=== PATIENT | female | born 2000 | race American Indian/Alaskan Native ===

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

== ENCOUNTER 2021-04-05 22:32 | Inpatient (IN) | payer MEDICAID, OTHER ==
[2021-04-05] MEDS ORDERED: LACTATED RINGERS 1,000 ML IV ONE ×2 (23:26→23:45)
[2021-04-05 23:42] LABS: Bilirubin,Urine NEG (Negative); Blood,Urine NEG (Negative); Color,Urine Yellow (Yellow); Mucus,Urine 3+ /HPF
[2021-04-05 23:47] LABS: WBC,Urine > 182.0 /HPF (0.0-6.0)
[2021-04-05] MEDS ORDERED: TERBUTALINE 1 MG/1 ML INJ SUB-Q PRN (23:58)
[2021-04-05] MEDS ORDERED: TERBUTALINE 1 MG/1 ML INJ ONE (23:59)
[2021-04-06 00:38] LABS: Basophils % (Auto) 0.3 % (0.0-1.8); Eosinophils % (Auto) 0.3 % (0.0-4.3); Hematocrit 34.1 % (30.3-42.9); Hemoglobin 11.4 gm/dl (10.1-14.3); Lymphocytes # (Auto) 1.7 K/mm3 (1.2-5.4); Lymphocytes % (Auto) 9.3 % (13.4-35.0); Mean Corpuscular HGB Conc 34 % (30-34); Mean Corpuscular Volume 97 fl (79-97); Monocytes # (Auto) 2.1 K/mm3 (0.0-0.8); Monocytes % (Auto) 11.7 % (0.0-7.3); Platelet Count 296 K/mm3 (140-440); Red Blood Count 3.52 M/mm3 (3.65-5.03); Red Cell Distribution Width 13.8 % (13.2-15.2)
[2021-04-06 00:50] LABS: Alanine Aminotransferase 7 units/L (7-56); Albumin 3.4 g/dL (3.9-5); Blood Urea Nitrogen 7 mg/dL (7-17); Calcium 9.6 mg/dL (8.4-10.2); Hemolysis Index 30
[2021-04-06 00:52] LABS: BUN/Creatinine Ratio 12
[2021-04-06] MEDS: AMPICILLIN/NS 2 GM/100 ML 2 GM/100 ML BAG IV SCH ×4 (01:57→20:25)
[2021-04-06] MEDS: LACTATED RINGERS 1,000 ML IV SCH ×2 (02:04→18:48)
[2021-04-06] MEDS: BUTORPHANOL 2 MG/1 ML INJ IV PRN ×2 (02:50→07:36)
[2021-04-06] MEDS: GENTAMICIN 240 MG in SODIUM CHLORIDE 0.9% 100 ML IV SCH (03:00)
--- NOTE | 2021-04-06 05:20 | Ultrasound Report ---
Renal ultrasound INDICATION: Bilateral flank pain. FINDINGS: The right kidney measures 11 cm in length. The right kidney demonstrates moderate hydroneph rosis. The left kidney measures 10 cm in length and demonstrates no hydronephrosis. Urinary bladder i s only partially fluid distended. IMPRESSION: Moderate right hydronephrosis. The technical sales representatives reports some increased relative Doppler fl ow within the right kidney which could be secondary to underlying inflammation such as pyelonephritis . No adjacent fluid collections are identified. Signer Name: Henry Ceron MD Signed: 04/06/2021 5:16 AM Workstation Name: [id number]
--- NOTE | 2021-04-06 05:25 | Ultrasound Report ---
ULTRASOUND OBSTETRIC Indication: wellbeing Findings: There is a single intrauterine . BPD = 7.4 cm = 29 weeks, 4 day(s). Head circumference = 27 cm = 29 weeks, 5 day(s). Abdominal circumference = 24.9 cm = 29 weeks, 1 day(s). Femur length = 5.2 cm = 27 weeks, 6 day(s). Overall estimated sonographic age = 29 weeks, 1 day(s). heart rate is 192 beats per minute. Estimated weight is 1291 grams position is cephalic. Cervix appears closed. movement is present. Placenta is posterior and grade 1 . Amniotic fluid volume appears normal. Impression: 1. Single living intrauterine with estimated sonographic age of 29 weeks, 1 day(s). 2. heart rate measures 192 bpm. 3. Cervical length measures 3.4 cm. ULTRASOUND BIOPHYSICAL PROFILE INDICATION / CLINICAL INFORMATION: wellbeing. COMPARISON: None available. FINDINGS: BREATHING MOVEMENT = 0 GROSS BODY MOVEMENT = 2 TONE = 2 QUALITATIVE AMNIOTIC FLUID VOLUME = 2 TOTAL BIOPHYSICAL SCORE = 8/8 IMPRESSION: 1. biophysical profile = 6 out of 8 Signer Name: Henry Ceron MD Signed: 04/06/2021 5:21 AM Workstation Name: [id number]
[2021-04-06] MEDS ORDERED: LACTATED RINGERS 1,000 ML IV ONE (06:56)
[2021-04-06] MEDS: ACETAMINOPHEN 325 MG TAB PO PRN (07:31)
--- NOTE | 2021-04-06 07:40 | History and Physical Report ---
History of Present Illness Date of examination: 04/06/21 Date of admission: 04/06/21 01:21 Chief complaint: stomach and back pain History of present illness: 20-year-old G1 at 29 weeks 3 days by stated BRYON of history at [facility] presenting with 1 day of back pain, abdominal pain, and pelvic pain. Patient was otherwise healthy with a benign course per patient report. No records were reviewed today. Past History Past Medical History: no pertinent history Past Surgical History: no surgical history Family/Genetic History: other (sister with thyroid disease) Social history: no significant social history - Obstetrical History : 1 Medications and Allergies Allergies Allergy/AdvReac Type Severity Reaction Status Date / Time broccoli AdvReac Unknown Verified 10/07/16 17:51 peanut AdvReac Unknown Verified 10/07/16 17:51 pineapple AdvReac Unknown Verified 10/07/16 17:51 Home Medications Medication Instructions Recorded Confirmed Last Taken Type Cetirizine HCl [ZyrTEC] 10 mg PO QDAY #14 capsule 10/08/16 Unknown Rx Fluticasone [Flonase] 1 spray NS QDAY #1 bottle 10/08/16 Unknown Rx Active Meds: Active Medications Acetaminophen (Acetaminophen 325 Mg Tab) 650 mg PO Q4H PRN PRN Reason: Pain MILD(1-3)/Fever >100.5/STYLES Butorphanol Tartrate (Butorphanol 2 Mg/1 Ml Inj) 2 mg IV Q2H PRN PRN Reason: Labor Pain Last Admin: 04/06/21 02:50 Dose: 2 mg Documented by: Ampicillin Sodium (Ampicillin/Ns 2 Gm/100 Ml) 2 gm in 100 mls @ 100 mls/hr IV Q6H LUNA; Protocol Stop: 04/07/21 20:59 Last Admin: 04/06/21 01:57 Dose: 100 mls/hr Documented by: Gentamicin Sulfate 240 mg/ (Sodium Chloride) 106 mls @ 200 mls/hr IV Q24H LUNA Last Admin: 04/06/21 03:00 Dose: 200 mls/hr Documented by: Lactated Ringer's (Lactated Ringers) 1,000 mls @ 150 mls/hr IV DIRECT LUNA Last Admin: 04/06/21 02:04 Dose: 150 mls/hr Documented by: Lactated Ringer's (Lactated Ringers) 1,000 mls @ 500 mls/hr IV BOLUS ONE Stop: 04/06/21 08:55 Review of Systems All systems: negative (expect HPI) - Vital Signs Vital signs: Vital Signs Pulse Pulse Ox 122 H 98 04/05/21 23:13 04/05/21 23:13 Temp Pulse Resp BP Pulse Ox 100.9 F H 147 H 17 117/65 99 04/06/21 07:27 04/06/21 07:35 04/06/21 07:27 04/06/21 07:27 04/06/21 07:35 - Physical Exam Cardiovascular: Other (tachycardia) Lungs: Positive: Clear to auscultation, Normal air movement Abdomen: Positive: normal appearance, soft, normal bowel sounds, other (R>L CVAT) - Obstetrical FHR: category 1, category 2 Uterine Contraction Monitor Mode: External Uterine Contraction Pattern: Irregular Results Result Diagrams: 04/05/21 23:48 04/05/21 23:48 Abnormal lab results 04/05/21 04/05/21 04/05/21 Range/Units 23:25 23:48 23:48 WBC 17.8 H (4.5-11.0) K/mm3 RBC 3.52 L (3.65-5.03) M/mm3 Lymph % (Auto) 9.3 L (13.4-35.0) % [place]vier % (Auto) 11.7 H (0.0-7.3) % [place] # (Auto) 2.1 H (0.0-0.8) K/mm3 Seg Neutrophils % 78.4 H (40.0-70.0) % Seg Neutrophils # 14.0 H (1.8-7.7) K/mm3 Sodium 135 L (137-145) mmol/L Albumin 3.4 L (3.9-5) g/dL Urine WBC (Auto) > 182.0 H (0.0-6.0) /HPF U Epithel Cells (Auto) 28.0 H (0-13.0) /HPF All other labs normal. Assessment and Plan - Patient Problems (1) Acute pyelonephritis Current Visit: Yes Status: Acute Plan to address problem: Patient symptoms are most consistent with acute right sided pyelonephritis however also with significant maternal and tachycardia. Renal sono without stones, showing right hydronephrosis. UA suggestive of urinary tract infection. White count elevated with a leukocyte predominance. --Consider cardiology and/or infectious disease consult if tachycardia persists. --Continue and antibiotics currently on ampicillin and gentamicin --Aggressive IV fluid hydration --Pain management as indicated --Continue inpatient management
--- NOTE | 2021-04-06 11:49 | Electrocardiograph Report ---
[facility] Test Date: 2021-04-06 Test Time: 01:36:25 Pat Name: WDAE SCOTT Department: Room: 2001 07 Gender: F Shopper'S Aide: TREV : 2000 Requested By: SULEMA SPENCER Order Number: [id number] Reading MD: Josue Houston Measurements Intervals [place] Rate: 134 P: 40 PA: 121 QRS: 47 QRSD: 67 T: 2 QT: 265 QTc: 396 Interpretive Statements Sinus tachycardia No previous ECG available for comparison Electronically Signed On 04-06-2021 11:48:36 EDT by Josue Houston
[2021-04-06] MEDS ORDERED: dexAMETHasone 4 MG/ML VIAL IV ONE (13:00)
[2021-04-06] MEDS: MORPHINE 4 MG/1 ML INJ IV PRN ×2 (13:44→18:36)
--- NOTE | 2021-04-06 18:27 | Progress Note ---
Subjective - Subjective Date of service: 04/06/21 Interval history: PM rounds: pain controlled FHT 140's appropriate and reassuring for gestational age [place]: not rianna Vitals: HR 79(tachycardia resolved) A: pyelo P; pain meds prn abx tylenol CFM Labs in AM Rad Salazar MD Objective - Vital Signs Vital Signs: Vital Signs - 12hr 04/06/21 04/06/21 04/06/21 06:29 06:50 06:55 Temperature Pulse Rate 137 H 145 H 137 H Respiratory Rate Blood Pressure Blood Pressure [Right] O2 Sat by Pulse 99 100 99 Oximetry O2 Sat by Pulse Oximetry [ Bilateral] 04/06/21 04/06/21 04/06/21 07:00 07:05 07:10 Temperature Pulse Rate 138 H 142 H 139 H Respiratory Rate Blood Pressure 118/68 Blood Pressure [Right] O2 Sat by Pulse 99 98 97 Oximetry O2 Sat by Pulse Oximetry [ Bilateral] 04/06/21 04/06/21 04/06/21 07:15 07:20 07:25 Temperature Pulse Rate 146 H 144 H 149 H Respiratory Rate Blood Pressure Blood Pressure [Right] O2 Sat by Pulse 97 97 97 Oximetry O2 Sat by Pulse Oximetry [ Bilateral] 04/06/21 04/06/21 04/06/21 07:26 07:27 07:30 Temperature 100.9 F H Pulse Rate 142 H 140 H 149 H Respiratory 17 Rate Blood Pressure 117/65 Blood Pressure 117/65 [Right] O2 Sat by Pulse 99 99 Oximetry O2 Sat by Pulse Oximetry [ Bilateral] 04/06/21 04/06/21 04/06/21 07:31 07:35 07:40 Temperature Pulse Rate 147 H 136 H Respiratory 17 Rate Blood Pressure Blood Pressure [Right] O2 Sat by Pulse 99 99 Oximetry O2 Sat by Pulse Oximetry [ Bilateral] 04/06/21 04/06/21 04/06/21 07:41 07:45 07:50 Temperature Pulse Rate 142 H 129 H Respiratory Rate Blood Pressure Blood Pressure [Right] O2 Sat by Pulse 97 96 Oximetry O2 Sat by Pulse 99 Oximetry [ Bilateral] 04/06/21 04/06/21 04/06/21 07:55 08:00 08:05 Temperature Pulse Rate 131 H 127 H 125 H Respiratory Rate Blood Pressure 118/70 Blood Pressure [Right] O2 Sat by Pulse 97 98 97 Oximetry O2 Sat by Pulse Oximetry [ Bilateral] 04/06/21 04/06/21 04/06/21 08:10 08:15 08:20 Temperature Pulse Rate 124 H 120 H 122 H Respiratory Rate Blood Pressure Blood Pressure [Right] O2 Sat by Pulse 97 97 97 Oximetry O2 Sat by Pulse Oximetry [ Bilateral] 04/06/21 04/06/21 04/06/21 08:25 08:30 08:35 Temperature Pulse Rate 129 H 129 H 129 H Respiratory Rate Blood Pressure Blood Pressure [Right] O2 Sat by Pulse 97 97 97 Oximetry O2 Sat by Pulse Oximetry [ Bilateral] 04/06/21 04/06/21 04/06/21 08:40 08:45 08:50 Temperature Pulse Rate 128 H 124 H 125 H Respiratory Rate Blood Pressure Blood Pressure [Right] O2 Sat by Pulse 99 99 98 Oximetry O2 Sat by Pulse Oximetry [ Bilateral] 04/06/21 04/06/21 04/06/21 08:55 09:00 09:05 Temperature Pulse Rate 124 H 128 H 129 H Respiratory Rate Blood Pressure 107/59 Blood Pressure [Right] O2 Sat by Pulse 98 97 98 Oximetry O2 Sat by Pulse Oximetry [ Bilateral] 04/06/21 04/06/21 04/06/21 09:10 09:15 09:20 Temperature Pulse Rate 126 H 129 H 137 H Respiratory Rate Blood Pressure Blood Pressure [Right] O2 Sat by Pulse 98 99 98 Oximetry O2 Sat by Pulse Oximetry [ Bilateral] 04/06/21 04/06/21 04/06/21 09:25 09:30 09:35 Temperature Pulse Rate 131 H 129 H 125 H Respiratory Rate Blood Pressure Blood Pressure [Right] O2 Sat by Pulse 98 97 97 Oximetry O2 Sat by Pulse Oximetry [ Bilateral] 04/06/21 04/06/21 04/06/21 09:40 09:45 09:50 Temperature Pulse Rate 139 H 142 H 130 H Respiratory Rate Blood Pressure Blood Pressure [Right] O2 Sat by Pulse 97 99 98 Oximetry O2 Sat by Pulse Oximetry [ Bilateral] 04/06/21 04/06/21 04/06/21 09:55 10:00 10:01 Temperature Pulse Rate 129 H 139 H 137 H Respiratory Rate Blood Pressure 110/59 Blood Pressure [Right] O2 Sat by Pulse 98 98 Oximetry O2 Sat by Pulse Oximetry [ Bilateral] 04/06/21 04/06/21 04/06/21 10:05 10:10 10:15 Temperature Pulse Rate 141 H 138 H 136 H Respiratory Rate Blood Pressure Blood Pressure [Right] O2 Sat by Pulse 99 98 97 Oximetry O2 Sat by Pulse Oximetry [ Bilateral] 04/06/21 04/06/21 04/06/21 10:20 10:25 10:30 Temperature Pulse Rate 141 H 137 H 131 H Respiratory Rate Blood Pressure Blood Pressure [Right] O2 Sat by Pulse 98 98 98 Oximetry O2 Sat by Pulse Oximetry [ Bilateral] 04/06/21 04/06/21 04/06/21 10:35 10:40 10:45 Temperature Pulse Rate 124 H 131 H 130 H Respiratory Rate Blood Pressure Blood Pressure [Right] O2 Sat by Pulse 98 99 99 Oximetry O2 Sat by Pulse Oximetry [ Bilateral] 04/06/21 04/06/21 04/06/21 10:50 10:55 11:00 Temperature Pulse Rate 131 H 128 H 131 H Respiratory Rate Blood Pressure Blood Pressure [Right] O2 Sat by Pulse 99 98 99 Oximetry O2 Sat by Pulse Oximetry [ Bilateral] 04/06/21 04/06/21 04/06/21 11:01 11:05 11:10 Temperature Pulse Rate 127 H 123 H 129 H Respiratory Rate Blood Pressure 112/56 Blood Pressure [Right] O2 Sat by Pulse 98 99 Oximetry O2 Sat by Pulse Oximetry [ Bilateral] 04/06/21 04/06/21 04/06/21 11:20 11:25 11:30 Temperature Pulse Rate 122 H 134 H 116 H Respiratory Rate Blood Pressure Blood Pressure [Right] O2 Sat by Pulse 99 98 99 Oximetry O2 Sat by Pulse Oximetry [ Bilateral] 04/06/21 04/06/21 04/06/21 11:35 11:40 11:45 Temperature Pulse Rate 125 H 116 H 112 H Respiratory Rate Blood Pressure Blood Pressure [Right] O2 Sat by Pulse 98 98 99 Oximetry O2 Sat by Pulse Oximetry [ Bilateral] 04/06/21 04/06/21 04/06/21 11:50 11:55 12:00 Temperature Pulse Rate 109 H 120 H 124 H Respiratory Rate Blood Pressure 119/69 Blood Pressure [Right] O2 Sat by Pulse 99 100 100 Oximetry O2 Sat by Pulse Oximetry [ Bilateral] 04/06/21 04/06/21 04/06/21 12:05 12:10 12:15 Temperature Pulse Rate 121 H 124 H 116 H Respiratory Rate Blood Pressure Blood Pressure [Right] O2 Sat by Pulse 99 99 99 Oximetry O2 Sat by Pulse Oximetry [ Bilateral] 04/06/21 04/06/21 04/06/21 12:20 12:25 12:30 Temperature Pulse Rate 124 H 111 H 116 H Respiratory Rate Blood Pressure Blood Pressure [Right] O2 Sat by Pulse 99 98 99 Oximetry O2 Sat by Pulse Oximetry [ Bilateral] 04/06/21 04/06/21 04/06/21 12:35 12:40 12:45 Temperature Pulse Rate 114 H 117 H 111 H Respiratory Rate Blood Pressure Blood Pressure [Right] O2 Sat by Pulse 99 100 99 Oximetry O2 Sat by Pulse Oximetry [ Bilateral] 04/06/21 04/06/21 04/06/21 12:50 13:00 13:05 Temperature Pulse Rate 116 H 118 H 114 H Respiratory Rate Blood Pressure Blood Pressure [Right] O2 Sat by Pulse 99 99 99 Oximetry O2 Sat by Pulse Oximetry [ Bilateral] 04/06/21 04/06/21 04/06/21 13:10 13:15 13:20 Temperature Pulse Rate 110 H 109 H 110 H Respiratory Rate Blood Pressure Blood Pressure [Right] O2 Sat by Pulse 100 100 99 Oximetry O2 Sat by Pulse Oximetry [ Bilateral] 04/06/21 04/06/21 04/06/21 13:25 13:30 13:35 Temperature Pulse Rate 109 H 110 H 107 H Respiratory Rate Blood Pressure Blood Pressure [Right] O2 Sat by Pulse 99 100 100 Oximetry O2 Sat by Pulse Oximetry [ Bilateral] 04/06/21 04/06/21 04/06/21 13:40 13:45 13:50 Temperature Pulse Rate 105 H 106 H 117 H Respiratory Rate Blood Pressure Blood Pressure [Right] O2 Sat by Pulse 100 100 99 Oximetry O2 Sat by Pulse Oximetry [ Bilateral] 04/06/21 04/06/21 04/06/21 13:55 14:00 14:05 Temperature Pulse Rate 109 H 112 H 111 H Respiratory Rate Blood Pressure 120/76 Blood Pressure [Right] O2 Sat by Pulse 99 99 99 Oximetry O2 Sat by Pulse Oximetry [ Bilateral] 04/06/21 04/06/21 04/06/21 14:10 14:15 14:20 Temperature Pulse Rate 108 H 109 H 107 H Respiratory Rate Blood Pressure Blood Pressure [Right] O2 Sat by Pulse 100 98 98 Oximetry O2 Sat by Pulse Oximetry [ Bilateral] 04/06/21 04/06/21 04/06/21 14:25 14:30 14:35 Temperature Pulse Rate 106 H 109 H 108 H Respiratory Rate Blood Pressure Blood Pressure [Right] O2 Sat by Pulse 98 98 98 Oximetry O2 Sat by Pulse Oximetry [ Bilateral] 04/06/21 04/06/21 04/06/21 14:40 14:45 14:50 Temperature Pulse Rate 107 H 110 H 107 H Respiratory Rate Blood Pressure Blood Pressure [Right] O2 Sat by Pulse 99 98 98 Oximetry O2 Sat by Pulse Oximetry [ Bilateral] 04/06/21 04/06/21 04/06/21 14:55 15:06 15:11 Temperature Pulse Rate 119 H 107 H 108 H Respiratory Rate Blood Pressure Blood Pressure [Right] O2 Sat by Pulse 98 99 99 Oximetry O2 Sat by Pulse Oximetry [ Bilateral] 04/06/21 04/06/21 04/06/21 15:16 15:21 15:26 Temperature Pulse Rate 106 H 105 H 106 H Respiratory Rate Blood Pressure Blood Pressure [Right] O2 Sat by Pulse 99 100 99 Oximetry O2 Sat by Pulse Oximetry [ Bilateral] 04/06/21 04/06/21 04/06/21 15:31 15:36 15:41 Temperature Pulse Rate 104 H 107 H 108 H Respiratory Rate Blood Pressure Blood Pressure [Right] O2 Sat by Pulse 99 100 99 Oximetry O2 Sat by Pulse Oximetry [ Bilateral] 04/06/21 04/06/21 04/06/21 15:46 15:51 15:56 Temperature Pulse Rate 111 H 104 H 106 H Respiratory Rate Blood Pressure Blood Pressure [Right] O2 Sat by Pulse 99 99 99 Oximetry O2 Sat by Pulse Oximetry [ Bilateral] 04/06/21 04/06/21 04/06/21 16:01 16:06 16:11 Temperature Pulse Rate 102 H 108 H 104 H Respiratory Rate Blood Pressure Blood Pressure [Right] O2 Sat by Pulse 99 98 100 Oximetry O2 Sat by Pulse Oximetry [ Bilateral] 04/06/21 04/06/21 04/06/21 16:16 16:21 16:29 Temperature Pulse Rate 105 H 103 H 104 H Respiratory Rate Blood Pressure Blood Pressure [Right] O2 Sat by Pulse 100 99 99 Oximetry O2 Sat by Pulse Oximetry [ Bilateral] 04/06/21 04/06/21 04/06/21 16:34 16:39 16:44 Temperature Pulse Rate 96 H 97 H 95 H Respiratory Rate Blood Pressure Blood Pressure [Right] O2 Sat by Pulse 99 99 99 Oximetry O2 Sat by Pulse Oximetry [ Bilateral] 04/06/21 04/06/21 04/06/21 16:49 16:54 16:59 Temperature Pulse Rate 95 H 96 H 95 H Respiratory Rate Blood Pressure Blood Pressure [Right] O2 Sat by Pulse 99 99 99 Oximetry O2 Sat by Pulse Oximetry [ Bilateral] 04/06/21 04/06/21 04/06/21 17:04 17:09 17:14 Temperature Pulse Rate 90 96 H 88 Respiratory Rate Blood Pressure Blood Pressure [Right] O2 Sat by Pulse 99 100 100 Oximetry O2 Sat by Pulse Oximetry [ Bilateral] 04/06/21 04/06/21 04/06/21 17:19 17:29 17:34 Temperature Pulse Rate 96 H 89 87 Respiratory Rate Blood Pressure Blood Pressure [Right] O2 Sat by Pulse 100 100 99 Oximetry O2 Sat by Pulse Oximetry [ Bilateral] 04/06/21 04/06/21 04/06/21 17:39 17:44 17:49 Temperature Pulse Rate 92 H 92 H 83 Respiratory Rate Blood Pressure Blood Pressure [Right] O2 Sat by Pulse 99 99 98 Oximetry O2 Sat by Pulse Oximetry [ Bilateral] 04/06/21 04/06/21 04/06/21 17:54 17:59 18:04 Temperature Pulse Rate 86 86 84 Respiratory Rate Blood Pressure Blood Pressure [Right] O2 Sat by Pulse 99 99 100 Oximetry O2 Sat by Pulse Oximetry [ Bilateral] 04/06/21 04/06/21 04/06/21 18:09 18:14 18:19 Temperature Pulse Rate 82 89 79 Respiratory Rate Blood Pressure Blood Pressure [Right] O2 Sat by Pulse 99 100 100 Oximetry O2 Sat by Pulse Oximetry [ Bilateral] - Labs Labs: Abnormal Labs 04/05/21 04/05/21 04/05/21 23:25 23:48 23:48 WBC 17.8 H RBC 3.52 L Lymph % (Auto) 9.3 L [place] % (Auto) 11.7 H [place] # (Auto) 2.1 H Seg Neutrophils % 78.4 H Seg Neutrophils # 14.0 H Sodium 135 L Albumin 3.4 L Urine WBC (Auto) > 182.0 H U Epithel Cells (Auto) 28.0 H Laboratory Results - last 24 hr 04/05/21 04/05/21 04/05/21 23:25 23:48 23:48 WBC 17.8 H RBC 3.52 L Hgb 11.4 Hct 34.1 MCV 97 MCH 32 MCHC 34 RDW 13.8 Plt Count 296 Lymph % (Auto) 9.3 L [place] % (Auto) 11.7 H Eos % (Auto) 0.3 Baso % (Auto) 0.3 Lymph # (Auto) 1.7 [place] # (Auto) 2.1 H Eos # (Auto) 0.0 Baso # (Auto) 0.0 Seg Neutrophils % 78.4 H Seg Neutrophils # 14.0 H Sodium 135 L Potassium 4.6 Chloride 100.6 Carbon Dioxide 22 Anion Gap 17 BUN 7 Creatinine 0.6 Estimated GFR > 60 BUN/Creatinine Ratio 12 Glucose 85 Calcium 9.6 Total Bilirubin 0.40 AST 17 ALT 7 Alkaline Phosphatase 119 Total Protein 8.0 Albumin 3.4 L Albumin/Globulin Ratio 0.7 TSH Free T4 Urine Color Yellow Urine Turbidity Turbid Urine pH 6.0 Ur Specific [place] 1.018 Urine Protein 100 mg/dl Urine Glucose (UA) Neg Urine Ketones Tr Urine Blood Neg Urine Nitrite Pos Urine Bilirubin Neg Urine Ictotest Not Reportable Urine Urobilinogen 4.0 Ur Leukocyte Esterase Lg Urine WBC (Auto) > 182.0 H Urine RBC (Auto) 78.0 U Epithel Cells (Auto) 28.0 H Urine WBC Clumps 3+ Urine Mucus 3+ Coronavirus (PCR) 04/06/21 04/06/21 09:56 Unknown WBC RBC Hgb Hct MCV MCH MCHC RDW Plt Count Lymph % (Auto) [place] % (Auto) Eos % (Auto) Baso % (Auto) Lymph # (Auto) [place] # (Auto) Eos # (Auto) Baso # (Auto) Seg Neutrophils % Seg Neutrophils # Sodium Potassium Chloride Carbon Dioxide Anion Gap BUN Creatinine Estimated GFR BUN/Creatinine Ratio Glucose Calcium Total Bilirubin AST ALT Alkaline Phosphatase Total Protein Albumin Albumin/Globulin Ratio TSH 0.419 Free T4 1.00 Urine Color Urine Turbidity Urine pH Ur Specific [place] Urine Protein Urine Glucose (UA) Urine Ketones Urine Blood Urine Nitrite Urine Bilirubin Urine Ictotest Urine Urobilinogen Ur Leukocyte Esterase Urine WBC (Auto) Urine RBC (Auto) U Epithel Cells (Auto) Urine WBC Clumps Urine Mucus Coronavirus (PCR) Negative
[2021-04-07] MEDS: AMPICILLIN/NS 2 GM/100 ML 2 GM/100 ML BAG IV SCH ×4 (02:48→20:27)
[2021-04-07] MEDS: GENTAMICIN 240 MG in SODIUM CHLORIDE 0.9% 100 ML IV SCH (03:43)
[2021-04-07] MEDS: LACTATED RINGERS 1,000 ML IV SCH ×3 (03:43→20:28)
[2021-04-07] MEDS: MORPHINE 4 MG/1 ML INJ IV PRN ×4 (04:14→23:14)
--- NOTE | 2021-04-07 08:55 | Progress Note ---
Assessment and Plan - Patient Problems (1) Acute pyelonephritis Current Visit: Yes Status: Acute Plan to address problem: Symptomatically improving on amp/gent. Persistent back pain that is improving. With vaginal irritation with wiping with glen seen on bedside exam. --Continue and antibiotics currently on ampicillin and gentamicin for 48-72 hours afebrile. Last temp 04/06/21 at 0727 --Aggressive IV fluid hydration --Pain management as indicated --Continue inpatient management Subjective - Subjective Date of service: 04/07/21 Principal diagnosis: R pyelophritis in Interval history: Patient reports that she is significantly improved from yesterday however still has abdominal pain. Patient with active fetus in clinic denies complaints. No PIH symptoms. Objective - Vital Signs Vital Signs: Vital Signs - 12hr 04/06/21 04/06/21 04/06/21 20:55 21:00 21:05 Temperature Pulse Rate 90 75 75 Respiratory Rate Blood Pressure 94/59 O2 Sat by Pulse 99 100 100 Oximetry O2 Sat by Pulse Oximetry [ Bilateral] 04/06/21 04/06/21 04/06/21 21:10 21:15 21:20 Temperature Pulse Rate 72 74 74 Respiratory Rate Blood Pressure O2 Sat by Pulse 99 99 99 Oximetry O2 Sat by Pulse Oximetry [ Bilateral] 04/06/21 04/06/21 04/06/21 21:25 21:30 21:35 Temperature Pulse Rate 75 79 73 Respiratory Rate Blood Pressure O2 Sat by Pulse 99 99 99 Oximetry O2 Sat by Pulse Oximetry [ Bilateral] 04/06/21 04/06/21 04/06/21 21:40 21:45 21:50 Temperature Pulse Rate 73 73 71 Respiratory Rate Blood Pressure O2 Sat by Pulse 99 99 99 Oximetry O2 Sat by Pulse Oximetry [ Bilateral] 04/06/21 04/06/21 04/06/21 21:55 22:00 22:02 Temperature Pulse Rate 74 69 74 Respiratory Rate Blood Pressure 88/54 O2 Sat by Pulse 99 99 Oximetry O2 Sat by Pulse Oximetry [ Bilateral] 04/06/21 04/06/21 04/06/21 22:05 22:10 22:15 Temperature Pulse Rate 74 73 71 Respiratory Rate Blood Pressure O2 Sat by Pulse 99 99 99 Oximetry O2 Sat by Pulse Oximetry [ Bilateral] 04/06/21 04/06/21 04/06/21 22:44 22:49 22:54 Temperature Pulse Rate 88 78 85 Respiratory Rate Blood Pressure O2 Sat by Pulse 100 100 98 Oximetry O2 Sat by Pulse Oximetry [ Bilateral] 04/06/21 04/06/21 04/06/21 22:59 23:00 23:04 Temperature Pulse Rate 82 73 71 Respiratory Rate Blood Pressure 101/61 O2 Sat by Pulse 100 100 Oximetry O2 Sat by Pulse Oximetry [ Bilateral] 04/06/21 04/06/21 04/06/21 23:09 23:14 23:19 Temperature Pulse Rate 75 74 72 Respiratory Rate Blood Pressure O2 Sat by Pulse 100 99 100 Oximetry O2 Sat by Pulse Oximetry [ Bilateral] 04/06/21 04/06/21 04/06/21 23:24 23:29 23:34 Temperature Pulse Rate 69 71 74 Respiratory Rate Blood Pressure O2 Sat by Pulse 99 100 99 Oximetry O2 Sat by Pulse Oximetry [ Bilateral] 04/06/21 04/06/21 04/06/21 23:39 23:44 23:49 Temperature Pulse Rate 73 71 79 Respiratory Rate Blood Pressure O2 Sat by Pulse 99 99 99 Oximetry O2 Sat by Pulse Oximetry [ Bilateral] 04/06/21 04/06/21 04/07/21 23:54 23:59 00:00 Temperature Pulse Rate 69 72 78 Respiratory Rate Blood Pressure 98/61 O2 Sat by Pulse 100 100 Oximetry O2 Sat by Pulse Oximetry [ Bilateral] 04/07/21 04/07/21 04/07/21 00:04 00:09 00:14 Temperature Pulse Rate 70 69 69 Respiratory Rate Blood Pressure O2 Sat by Pulse 100 99 99 Oximetry O2 Sat by Pulse Oximetry [ Bilateral] 04/07/21 04/07/21 04/07/21 00:19 00:24 00:29 Temperature Pulse Rate 67 64 66 Respiratory Rate Blood Pressure O2 Sat by Pulse 99 99 99 Oximetry O2 Sat by Pulse Oximetry [ Bilateral] 04/07/21 04/07/21 04/07/21 00:34 00:39 00:44 Temperature Pulse Rate 71 72 71 Respiratory Rate Blood Pressure O2 Sat by Pulse 98 99 98 Oximetry O2 Sat by Pulse Oximetry [ Bilateral] 04/07/21 04/07/21 04/07/21 00:49 00:54 00:59 Temperature Pulse Rate 75 66 76 Respiratory Rate Blood Pressure O2 Sat by Pulse 99 98 99 Oximetry O2 Sat by Pulse Oximetry [ Bilateral] 04/07/21 04/07/21 04/07/21 01:01 01:04 01:10 Temperature Pulse Rate 95 H 98 H Respiratory Rate Blood Pressure 112/83 O2 Sat by Pulse 99 100 Oximetry O2 Sat by Pulse Oximetry [ Bilateral] 04/07/21 04/07/21 04/07/21 01:15 01:20 01:25 Temperature Pulse Rate 71 76 70 Respiratory Rate Blood Pressure O2 Sat by Pulse 100 100 100 Oximetry O2 Sat by Pulse Oximetry [ Bilateral] 04/07/21 04/07/21 04/07/21 01:30 01:35 01:40 Temperature Pulse Rate 67 71 76 Respiratory Rate Blood Pressure O2 Sat by Pulse 99 99 99 Oximetry O2 Sat by Pulse Oximetry [ Bilateral] 04/07/21 04/07/21 04/07/21 01:45 01:50 01:55 Temperature Pulse Rate 74 70 69 Respiratory Rate Blood Pressure O2 Sat by Pulse 99 100 99 Oximetry O2 Sat by Pulse Oximetry [ Bilateral] 04/07/21 04/07/21 04/07/21 02:00 02:05 02:10 Temperature Pulse Rate 80 68 80 Respiratory Rate Blood Pressure 98/54 O2 Sat by Pulse 99 99 99 Oximetry O2 Sat by Pulse Oximetry [ Bilateral] 04/07/21 04/07/21 04/07/21 02:15 02:20 02:25 Temperature Pulse Rate 73 69 65 Respiratory Rate Blood Pressure O2 Sat by Pulse 99 99 100 Oximetry O2 Sat by Pulse Oximetry [ Bilateral] 04/07/21 04/07/21 04/07/21 02:30 02:35 02:40 Temperature Pulse Rate 67 69 66 Respiratory Rate Blood Pressure O2 Sat by Pulse 99 99 99 Oximetry O2 Sat by Pulse Oximetry [ Bilateral] 04/07/21 04/07/21 04/07/21 02:45 02:50 02:55 Temperature Pulse Rate 74 63 65 Respiratory Rate Blood Pressure O2 Sat by Pulse 99 99 100 Oximetry O2 Sat by Pulse Oximetry [ Bilateral] 04/07/21 04/07/21 04/07/21 03:00 03:02 03:05 Temperature Pulse Rate 68 66 66 Respiratory Rate Blood Pressure 93/50 O2 Sat by Pulse 99 99 Oximetry O2 Sat by Pulse Oximetry [ Bilateral] 04/07/21 04/07/21 04/07/21 03:10 03:15 03:20 Temperature Pulse Rate 64 65 62 Respiratory Rate Blood Pressure O2 Sat by Pulse 98 100 100 Oximetry O2 Sat by Pulse Oximetry [ Bilateral] 04/07/21 04/07/21 04/07/21 03:25 03:30 03:35 Temperature Pulse Rate 71 60 63 Respiratory Rate Blood Pressure O2 Sat by Pulse 100 99 100 Oximetry O2 Sat by Pulse Oximetry [ Bilateral] 04/07/21 04/07/21 04/07/21 03:40 03:45 03:52 Temperature Pulse Rate 66 71 Respiratory Rate Blood Pressure O2 Sat by Pulse 100 100 98 Oximetry O2 Sat by Pulse Oximetry [ Bilateral] 04/07/21 04/07/21 04/07/21 03:57 04:01 04:02 Temperature Pulse Rate 86 100 H 77 Respiratory Rate Blood Pressure 109/80 O2 Sat by Pulse 100 99 Oximetry O2 Sat by Pulse Oximetry [ Bilateral] 04/07/21 04/07/21 04/07/21 04:07 04:12 04:17 Temperature Pulse Rate 109 H 92 H 104 H Respiratory Rate Blood Pressure O2 Sat by Pulse 99 100 99 Oximetry O2 Sat by Pulse Oximetry [ Bilateral] 04/07/21 04/07/21 04/07/21 04:22 04:27 04:32 Temperature Pulse Rate 94 H 87 87 Respiratory Rate Blood Pressure O2 Sat by Pulse 100 100 100 Oximetry O2 Sat by Pulse Oximetry [ Bilateral] 04/07/21 04/07/21 04/07/21 04:37 04:42 04:47 Temperature Pulse Rate 99 H 91 H 77 Respiratory Rate Blood Pressure O2 Sat by Pulse 100 100 100 Oximetry O2 Sat by Pulse Oximetry [ Bilateral] 04/07/21 04/07/21 04/07/21 04:52 04:57 05:00 Temperature Pulse Rate 91 H 101 H 89 Respiratory Rate Blood Pressure 100/59 O2 Sat by Pulse 100 100 Oximetry O2 Sat by Pulse Oximetry [ Bilateral] 04/07/21 04/07/21 04/07/21 05:02 05:07 05:12 Temperature Pulse Rate 76 104 H 80 Respiratory Rate Blood Pressure O2 Sat by Pulse 100 99 100 Oximetry O2 Sat by Pulse Oximetry [ Bilateral] 04/07/21 04/07/21 04/07/21 05:17 05:22 05:27 Temperature Pulse Rate 71 96 H 100 H Respiratory Rate Blood Pressure O2 Sat by Pulse 100 99 100 Oximetry O2 Sat by Pulse Oximetry [ Bilateral] 04/07/21 04/07/21 04/07/21 05:32 05:37 05:41 Temperature 98.1 F Pulse Rate 91 H 99 H Respiratory 16 Rate Blood Pressure O2 Sat by Pulse 100 100 Oximetry O2 Sat by Pulse Oximetry [ Bilateral] 04/07/21 04/07/21 04/07/21 05:42 05:47 05:52 Temperature Pulse Rate 75 73 78 Respiratory Rate Blood Pressure O2 Sat by Pulse 100 100 100 Oximetry O2 Sat by Pulse Oximetry [ Bilateral] 04/07/21 04/07/21 04/07/21 05:57 06:01 06:02 Temperature Pulse Rate 85 76 81 Respiratory Rate Blood Pressure 92/54 O2 Sat by Pulse 100 99 Oximetry O2 Sat by Pulse Oximetry [ Bilateral] 04/07/21 04/07/21 04/07/21 06:07 06:12 06:17 Temperature Pulse Rate 84 84 79 Respiratory Rate Blood Pressure O2 Sat by Pulse 99 99 99 Oximetry O2 Sat by Pulse Oximetry [ Bilateral] 04/07/21 04/07/21 04/07/21 06:22 06:27 06:32 Temperature Pulse Rate 91 H 83 80 Respiratory Rate Blood Pressure O2 Sat by Pulse 98 98 99 Oximetry O2 Sat by Pulse Oximetry [ Bilateral] 04/07/21 04/07/21 04/07/21 06:37 06:42 06:47 Temperature Pulse Rate 81 79 86 Respiratory Rate Blood Pressure O2 Sat by Pulse 98 98 99 Oximetry O2 Sat by Pulse Oximetry [ Bilateral] 04/07/21 04/07/21 04/07/21 06:52 06:57 07:01 Temperature Pulse Rate 80 83 72 Respiratory Rate Blood Pressure 89/52 O2 Sat by Pulse 99 99 Oximetry O2 Sat by Pulse Oximetry [ Bilateral] 04/07/21 04/07/21 04/07/21 07:02 07:07 07:12 Temperature Pulse Rate 78 78 86 Respiratory Rate Blood Pressure O2 Sat by Pulse 98 99 99 Oximetry O2 Sat by Pulse Oximetry [ Bilateral] 04/07/21 04/07/21 04/07/21 07:17 07:22 07:27 Temperature Pulse Rate 82 76 74 Respiratory Rate Blood Pressure O2 Sat by Pulse 99 99 99 Oximetry O2 Sat by Pulse Oximetry [ Bilateral] 04/07/21 04/07/21 04/07/21 07:32 07:33 07:37 Temperature Pulse Rate 86 71 83 Respiratory Rate Blood Pressure 100/58 O2 Sat by Pulse 100 100 Oximetry O2 Sat by Pulse Oximetry [ Bilateral] 04/07/21 04/07/21 04/07/21 08:03 08:08 08:13 Temperature Pulse Rate 81 83 78 Respiratory Rate Blood Pressure O2 Sat by Pulse 100 99 99 Oximetry O2 Sat by Pulse Oximetry [ Bilateral] 04/07/21 04/07/21 04/07/21 08:18 08:30 08:32 Temperature 97.8 F Pulse Rate 96 H Respiratory 20 Rate Blood Pressure O2 Sat by Pulse 100 99 100 Oximetry O2 Sat by Pulse 99 Oximetry [ Bilateral] 04/07/21 04/07/21 04/07/21 08:34 08:37 08:42 Temperature Pulse Rate 80 85 98 H Respiratory Rate Blood Pressure 108/64 O2 Sat by Pulse 99 100 Oximetry O2 Sat by Pulse Oximetry [ Bilateral] 04/07/21 08:47 Temperature Pulse Rate 91 H Respiratory Rate Blood Pressure O2 Sat by Pulse 100 Oximetry O2 Sat by Pulse Oximetry [ Bilateral] - Exam Abdomen: Present: normal appearance, soft, normal bowel sounds, other (CVAT improved) Vulva: both: normal (+ glen) Uterus: Present: normal FHR: category 1 Uterine Contraction Monitor Mode: External Uterine Contraction Pattern: Absent - Labs Labs: Abnormal Labs 04/05/21 04/05/21 04/05/21 23:25 23:48 23:48 WBC 17.8 H RBC 3.52 L Lymph % (Auto) 9.3 L [place] % (Auto) 11.7 H [place] # (Auto) 2.1 H Seg Neutrophils % 78.4 H Seg Neutrophils # 14.0 H Sodium 135 L Albumin 3.4 L Urine WBC (Auto) > 182.0 H U Epithel Cells (Auto) 28.0 H Laboratory Results - last 24 hr 04/06/21 04/06/21 09:56 Unknown TSH 0.419 Free T4 1.00 Coronavirus (PCR) Negative
[2021-04-07] MEDS ORDERED: FLUCONAZOLE 200 MG TAB PO NR (10:00)
[2021-04-07 10:13] LABS: Hematocrit 30.7 % (30.3-42.9); Hemoglobin 10.3 gm/dl (10.1-14.3); Mean Corpuscular HGB Conc 34 % (30-34); Mean Corpuscular Volume 96 fl (79-97); Platelet Count 262 K/mm3 (140-440); Red Blood Count 3.19 M/mm3 (3.65-5.03); Red Cell Distribution Width 14.2 % (13.2-15.2)
--- NOTE | 2021-04-07 21:00 | Ultrasound Report ---
Biophysical profile Ultrasound HISTORY: deceleration in 80's. TECHNIQUE: Grayscale and color imaging performed. COMPARISON: Biophysical profile ultrasound from yesterday FINDINGS: Fetus received a score of 2 out of 2 for breathing, posture/tone, and KENNEDY, and movement. To crescencio score was 8 out of 8. Heart rate during the exam was 152 bpm. IMPRESSION: Normal biophysical profile. Signer Name: Christiano Garza MD Signed: 04/07/2021 8:56 PM Workstation Name: [id number]
[2021-04-07 22:38] LABS: Total Cells Counted 100
[2021-04-07 22:39] LABS: Platelet Estimate Consistent w Auto; RBC Morphology Normal
[2021-04-07] MEDS: DOCUSATE SODIUM 100 MG CAP PO SCH (23:30)
[2021-04-07] MEDS: ALUM-MAG HYDROXIDE-SIMETHICONE 200-200-20MG/5ML ORAL LIQD 30 ML PO PRN (23:31)
[2021-04-08] MEDS: AMPICILLIN/NS 2 GM/100 ML 2 GM/100 ML BAG IV SCH ×3 (02:19→14:07)
[2021-04-08] MEDS: GENTAMICIN 240 MG in SODIUM CHLORIDE 0.9% 100 ML IV SCH (03:27)
[2021-04-08] MEDS: ACETAMINOPHEN 325 MG TAB PO PRN (03:44)
[2021-04-08] MEDS: DOCUSATE SODIUM 100 MG CAP PO SCH ×2 (10:20→22:20)
[2021-04-08] MEDS: LACTATED RINGERS 1,000 ML IV SCH ×2 (10:20→21:05)
[2021-04-08] MEDS: MORPHINE 4 MG/1 ML INJ IV PRN (11:04)
--- NOTE | 2021-04-08 12:40 | Consultation ---
History of Present Illness Consult date: 04/08/21 Requesting physician: EMELYN PERSAUD History of present illness: HPI Ms. Tobar is a 20 y/o BRYON 06/19/21 EGA at 29 5/7 weeks Presented 04/05/21 with back pain and lower abdominal pain since 5 am on 04/04/21 Reported Fevers , No chills vag bleeding or leaking Denies di Denies complications prior to this admission States pain on admission 04/10 and now 10/09 " improved " Currently on IV amp/Gent urine cx pos for gram neg rods - e coli ) Afeb currently 97.4 Temp of 101.2 last night 118/66 No med, surg, allergies or STD or C/D/D abd soft min tender Min R CVA Ext nt no edema Renal US - Right Mod Hydronephrosis OB us 04/06/21 EFW at 1291 grams - 20% BPP 02/06 EFW 130-140 Categ I Past History Past Medical History: no pertinent history Past Surgical History: no surgical history Family/Genetic History: other (sister with thyroid disease) - Obstetrical History : 1 Medications and Allergies Allergies Allergy/AdvReac Type Severity Reaction Status Date / Time broccoli Allergy Anaphylaxis Verified 04/07/21 09:07 peanut Allergy Anaphylaxis Verified 04/07/21 09:07 pineapple Allergy Anaphylaxis Verified 04/07/21 09:07 Home Medications Medication Instructions Recorded Confirmed Last Taken Type One Daily Tablet 1 tab PO DAILY 04/07/21 04/07/21 04/05/21 History Active Meds: Active Medications Acetaminophen (Acetaminophen 325 Mg Tab) 650 mg PO Q4H PRN PRN Reason: Pain MILD(1-3)/Fever >100.5/STYLES Last Admin: 04/08/21 03:44 Dose: 650 mg Documented by: Al Hydrox/Mg Hydrox/Simethicone (Alum-Mag Hydroxide-Simethicone [id number]/5ml Oral Liqd 30 Ml) 30 ml PO Q4H PRN PRN Reason: Indigestion Last Admin: 04/07/21 23:31 Dose: 30 ml Documented by: Butorphanol Tartrate (Butorphanol 2 Mg/1 Ml Inj) 2 mg IV Q2H PRN PRN Reason: Labor Pain Last Admin: 04/06/21 07:36 Dose: 2 mg Documented by: Docusate Sodium (Docusate Sodium 100 Mg Cap) 100 mg PO BID LUNA Last Admin: 04/08/21 10:20 Dose: 100 mg Documented by: Ampicillin Sodium (Ampicillin/Ns 2 Gm/100 Ml) 2 gm in 100 mls @ 100 mls/hr IV Q6H LUNA; Protocol Last Admin: 04/08/21 10:18 Dose: 100 mls/hr Documented by: Gentamicin Sulfate 240 mg/ (Sodium Chloride) 106 mls @ 200 mls/hr IV Q24H LUNA Last Admin: 04/08/21 03:27 Dose: 200 mls/hr Documented by: Lactated Ringer's (Lactated Ringers) 1,000 mls @ 150 mls/hr IV DIRECT LUNA Last Admin: 04/08/21 10:20 Dose: 125 mls/hr Documented by: Morphine Sulfate (Morphine 4 Mg/1 Ml Inj) 4 mg IV Q6H PRN PRN Reason: Pain , Severe (7-10) Stop: 04/08/21 13:59 Last Admin: 04/08/21 11:04 Dose: 4 mg Documented by: - Vital Signs Vital signs: Vital Signs Pulse Pulse Ox 122 H 98 04/05/21 23:13 04/05/21 23:13 Temp Pulse Resp BP Pulse Ox 97.7 F 101 H 18 116/68 99 04/08/21 10:04 04/08/21 12:36 04/08/21 03:44 04/08/21 11:44 04/08/21 12:36 Results Result Diagrams: 04/07/21 09:41 04/05/21 23:48 Abnormal lab results 04/07/21 Range/Units 09:41 Seg Neuts % (Manual) 91.0 H (40.0-70.0) % Lymphocytes % (Manual) 9.0 L (13.4-35.0) % Seg Neutrophils # Man 30.3 H (1.8-7.7) K/mm3 All other labs normal. Assessment and Plan Impression: 1. Diaz IUP at 29 5/7 weeks 2. Pyelonephritis 3. Moderate Right Maternal Hydronephrosis 4. Anemia Recommendations 1. Continue IV Antibiotics - DC once AFEB X 24 hours and start oral antibiotics x 7 day 2. After completion of 7 day course of PO antibiotics place on Macrodantin ( if sensitive ) 100 q day for duration of preg 3. Iron BID 4. FU US in 4 weeks for growth due to EFW at 20% 5. Hydration 6. If pain persists despite antibiotics may consider Urology consult for Right Hydronephrosis
[2021-04-08 12:58] LABS: Basophils # (Auto) 0.1 K/mm3 (0.0-0.1); Basophils % (Auto) 0.3 % (0.0-1.8); Eosinophils % (Auto) 0.2 % (0.0-4.3); Hematocrit 30.2 % (30.3-42.9); Hemoglobin 10.1 gm/dl (10.1-14.3); Lymphocytes # (Auto) 2.2 K/mm3 (1.2-5.4); Mean Corpuscular HGB Conc 34 % (30-34); Mean Corpuscular Volume 95 fl (79-97); Monocytes # (Auto) 1.8 K/mm3 (0.0-0.8); Monocytes % (Auto) 10.1 % (0.0-7.3); Platelet Count 301 K/mm3 (140-440); Red Blood Count 3.19 M/mm3 (3.65-5.03); Red Cell Distribution Width 13.9 % (13.2-15.2)
[2021-04-08 13:48] LABS: Bilirubin,Urine NEG (Negative); Blood,Urine NEG (Negative); Color,Urine Straw (Yellow); Protein,Urine <15 mg/dL mg/dL (Negative); Urobilinogen,Urine < 2.0 mg/dL (<2.0)
--- NOTE | 2021-04-08 14:07 | Progress Note ---
Assessment and Plan HD#3 with right pyelo and leucocytosis, EColi on urine culture, sensitivities pending 1. Appreciate [facility] consult and will discharge pt home after 24hrs afebrile on oral macrobid suppression for the duration of the 2. Routine antepartum care and pt to get regular diet 3. If pain is persistent will consider consult to urology inspite of no kidney stones with moderate right hydronephrosis, possible stent needed. 4. Pt reassured that she is not in labor with cervical exam closed/thick/high Subjective Date of service: 04/08/21 Principal diagnosis: R pyelophritis in Interval history: pt c/o abdominal and bilateral flank pain. pt received morphine overnight with good effect and the nurse she gave her another dose this morning. pt admits to movement. Consult done by me to dr. Menjivar was completed this morning prior to my charting this note. pt denies LOF, VB and unsure if she is having contractions. Objective - Constitutional Vitals: Vital Signs - 12hr 04/08/21 04/08/21 04/08/21 03:34 03:36 03:38 Temperature 101.2 F H Pulse Rate 109 H 109 H 97 H Respiratory 18 Rate Blood Pressure 109/58 Blood Pressure 109/58 [Right] O2 Sat by Pulse 80 L Oximetry O2 Sat by Pulse Oximetry [ Bilateral] 04/08/21 04/08/21 04/08/21 03:43 03:44 03:48 Temperature Pulse Rate 114 H 117 H Respiratory 18 Rate Blood Pressure Blood Pressure [Right] O2 Sat by Pulse 97 98 Oximetry O2 Sat by Pulse Oximetry [ Bilateral] 04/08/21 04/08/21 04/08/21 03:53 03:58 04:03 Temperature Pulse Rate 114 H 114 H 115 H Respiratory Rate Blood Pressure Blood Pressure [Right] O2 Sat by Pulse 98 98 98 Oximetry O2 Sat by Pulse Oximetry [ Bilateral] 04/08/21 04/08/21 04/08/21 04:08 04:13 04:18 Temperature Pulse Rate 109 H 121 H 114 H Respiratory Rate Blood Pressure Blood Pressure [Right] O2 Sat by Pulse 97 97 96 Oximetry O2 Sat by Pulse Oximetry [ Bilateral] 04/08/21 04/08/21 04/08/21 04:23 04:33 04:37 Temperature Pulse Rate 120 H 111 H 125 H Respiratory Rate Blood Pressure Blood Pressure [Right] O2 Sat by Pulse 97 97 93 Oximetry O2 Sat by Pulse Oximetry [ Bilateral] 04/08/21 04/08/21 04/08/21 04:38 04:43 04:48 Temperature Pulse Rate 118 H 109 H 110 H Respiratory Rate Blood Pressure Blood Pressure [Right] O2 Sat by Pulse 97 97 96 Oximetry O2 Sat by Pulse Oximetry [ Bilateral] 04/08/21 04/08/21 04/08/21 04:53 04:55 04:58 Temperature Pulse Rate 125 H 124 H 102 H Respiratory Rate Blood Pressure Blood Pressure [Right] O2 Sat by Pulse 97 94 98 Oximetry O2 Sat by Pulse Oximetry [ Bilateral] 04/08/21 04/08/21 04/08/21 05:03 05:08 05:13 Temperature Pulse Rate 113 H 104 H 104 H Respiratory Rate Blood Pressure Blood Pressure [Right] O2 Sat by Pulse 99 98 98 Oximetry O2 Sat by Pulse Oximetry [ Bilateral] 04/08/21 04/08/21 04/08/21 05:18 05:23 05:28 Temperature Pulse Rate 104 H 116 H 97 H Respiratory Rate Blood Pressure Blood Pressure [Right] O2 Sat by Pulse 98 99 98 Oximetry O2 Sat by Pulse Oximetry [ Bilateral] 04/08/21 04/08/21 04/08/21 05:33 05:38 05:43 Temperature Pulse Rate 67 96 H 98 H Respiratory Rate Blood Pressure Blood Pressure [Right] O2 Sat by Pulse 81 L 98 98 Oximetry O2 Sat by Pulse Oximetry [ Bilateral] 04/08/21 04/08/21 04/08/21 05:48 05:53 05:58 Temperature Pulse Rate 101 H 97 H 114 H Respiratory Rate Blood Pressure Blood Pressure [Right] O2 Sat by Pulse 98 98 99 Oximetry O2 Sat by Pulse Oximetry [ Bilateral] 04/08/21 04/08/21 04/08/21 06:03 06:08 06:13 Temperature Pulse Rate 100 H 101 H 100 H Respiratory Rate Blood Pressure Blood Pressure [Right] O2 Sat by Pulse 98 98 99 Oximetry O2 Sat by Pulse Oximetry [ Bilateral] 04/08/21 04/08/21 04/08/21 06:18 06:23 06:28 Temperature Pulse Rate 95 H 94 H 92 H Respiratory Rate Blood Pressure Blood Pressure [Right] O2 Sat by Pulse 99 99 98 Oximetry O2 Sat by Pulse Oximetry [ Bilateral] 04/08/21 04/08/21 04/08/21 06:33 06:38 06:43 Temperature Pulse Rate 91 H 90 91 H Respiratory Rate Blood Pressure Blood Pressure [Right] O2 Sat by Pulse 98 98 98 Oximetry O2 Sat by Pulse Oximetry [ Bilateral] 04/08/21 04/08/21 04/08/21 06:48 06:53 06:58 Temperature Pulse Rate 88 91 H 92 H Respiratory Rate Blood Pressure Blood Pressure [Right] O2 Sat by Pulse 98 98 98 Oximetry O2 Sat by Pulse Oximetry [ Bilateral] 04/08/21 04/08/21 04/08/21 07:03 07:08 07:13 Temperature Pulse Rate 84 86 90 Respiratory Rate Blood Pressure Blood Pressure [Right] O2 Sat by Pulse 98 98 98 Oximetry O2 Sat by Pulse Oximetry [ Bilateral] 04/08/21 04/08/21 04/08/21 07:18 07:23 07:28 Temperature Pulse Rate 88 94 H 97 H Respiratory Rate Blood Pressure Blood Pressure [Right] O2 Sat by Pulse 98 98 99 Oximetry O2 Sat by Pulse Oximetry [ Bilateral] 04/08/21 04/08/21 04/08/21 07:33 07:38 07:43 Temperature Pulse Rate 86 94 H 107 H Respiratory Rate Blood Pressure Blood Pressure [Right] O2 Sat by Pulse 98 99 99 Oximetry O2 Sat by Pulse Oximetry [ Bilateral] 04/08/21 04/08/21 04/08/21 07:48 07:53 07:58 Temperature Pulse Rate 86 87 84 Respiratory Rate Blood Pressure Blood Pressure [Right] O2 Sat by Pulse 98 97 97 Oximetry O2 Sat by Pulse Oximetry [ Bilateral] 04/08/21 04/08/21 04/08/21 08:03 08:08 08:13 Temperature Pulse Rate 85 83 84 Respiratory Rate Blood Pressure Blood Pressure [Right] O2 Sat by Pulse 97 97 97 Oximetry O2 Sat by Pulse Oximetry [ Bilateral] 04/08/21 04/08/21 04/08/21 08:18 08:23 08:42 Temperature Pulse Rate 85 103 H 81 Respiratory Rate Blood Pressure Blood Pressure [Right] O2 Sat by Pulse 97 99 100 Oximetry O2 Sat by Pulse Oximetry [ Bilateral] 04/08/21 04/08/21 04/08/21 08:47 08:52 08:57 Temperature Pulse Rate 80 79 74 Respiratory Rate Blood Pressure Blood Pressure [Right] O2 Sat by Pulse 98 100 99 Oximetry O2 Sat by Pulse Oximetry [ Bilateral] 04/08/21 04/08/21 04/08/21 09:02 09:07 09:12 Temperature Pulse Rate 79 84 82 Respiratory Rate Blood Pressure Blood Pressure [Right] O2 Sat by Pulse 98 98 100 Oximetry O2 Sat by Pulse Oximetry [ Bilateral] 04/08/21 04/08/21 04/08/21 09:17 09:22 09:27 Temperature Pulse Rate 82 82 84 Respiratory Rate Blood Pressure Blood Pressure [Right] O2 Sat by Pulse 98 99 98 Oximetry O2 Sat by Pulse Oximetry [ Bilateral] 04/08/21 04/08/21 04/08/21 09:32 09:37 09:42 Temperature Pulse Rate 79 84 84 Respiratory Rate Blood Pressure Blood Pressure [Right] O2 Sat by Pulse 100 99 99 Oximetry O2 Sat by Pulse Oximetry [ Bilateral] 04/08/21 04/08/21 04/08/21 09:45 09:47 09:52 Temperature Pulse Rate 83 85 87 Respiratory Rate Blood Pressure 106/59 Blood Pressure [Right] O2 Sat by Pulse 100 100 Oximetry O2 Sat by Pulse Oximetry [ Bilateral] 04/08/21 04/08/21 04/08/21 09:57 10:02 10:04 Temperature 97.7 F Pulse Rate 90 85 Respiratory Rate Blood Pressure Blood Pressure [Right] O2 Sat by Pulse 100 100 Oximetry O2 Sat by Pulse 99 Oximetry [ Bilateral] 04/08/21 04/08/21 04/08/21 10:07 10:12 10:17 Temperature Pulse Rate 86 79 85 Respiratory Rate Blood Pressure Blood Pressure [Right] O2 Sat by Pulse 99 99 99 Oximetry O2 Sat by Pulse Oximetry [ Bilateral] 04/08/21 04/08/21 04/08/21 10:22 10:27 10:49 Temperature Pulse Rate 90 86 91 H Respiratory Rate Blood Pressure Blood Pressure [Right] O2 Sat by Pulse 98 99 99 Oximetry O2 Sat by Pulse Oximetry [ Bilateral] 04/08/21 04/08/21 04/08/21 10:54 10:59 11:04 Temperature Pulse Rate 83 93 H 92 H Respiratory Rate Blood Pressure Blood Pressure [Right] O2 Sat by Pulse 100 99 99 Oximetry O2 Sat by Pulse Oximetry [ Bilateral] 04/08/21 04/08/2121 11:09 11:14 11:19 Temperature Pulse Rate 103 H 107 H 100 H Respiratory Rate Blood Pressure Blood Pressure [Right] O2 Sat by Pulse 100 100 100 Oximetry O2 Sat by Pulse Oximetry [ Bilateral] 04/08/21 04/08/21 04/08/21 11:24 11:31 11:36 Temperature Pulse Rate 100 H 111 H 105 H Respiratory Rate Blood Pressure Blood Pressure [Right] O2 Sat by Pulse 99 99 100 Oximetry O2 Sat by Pulse Oximetry [ Bilateral] 04/08/21 04/08/21 04/08/21 11:41 11:44 11:46 Temperature Pulse Rate 100 H 87 102 H Respiratory Rate Blood Pressure 116/68 Blood Pressure [Right] O2 Sat by Pulse 100 100 Oximetry O2 Sat by Pulse Oximetry [ Bilateral] 04/08/21 04/08/21 04/08/21 11:51 11:56 12:01 Temperature Pulse Rate 100 H 116 H 99 H Respiratory Rate Blood Pressure Blood Pressure [Right] O2 Sat by Pulse 100 100 99 Oximetry O2 Sat by Pulse Oximetry [ Bilateral] 04/08/21 04/08/21 04/08/21 12:06 12:11 12:16 Temperature Pulse Rate 100 H 110 H 101 H Respiratory Rate Blood Pressure Blood Pressure [Right] O2 Sat by Pulse 100 99 100 Oximetry O2 Sat by Pulse Oximetry [ Bilateral] 04/08/21 04/08/21 04/08/21 12:21 12:26 12:31 Temperature Pulse Rate 97 H 94 H 105 H Respiratory Rate Blood Pressure Blood Pressure [Right] O2 Sat by Pulse 99 98 98 Oximetry O2 Sat by Pulse Oximetry [ Bilateral] 04/08/21 04/08/21 04/08/21 12:36 12:41 12:46 Temperature Pulse Rate 101 H 104 H 103 H Respiratory Rate Blood Pressure Blood Pressure [Right] O2 Sat by Pulse 99 98 98 Oximetry O2 Sat by Pulse Oximetry [ Bilateral] 04/08/21 04/08/21 04/08/21 12:51 12:56 13:20 Temperature Pulse Rate 95 H 99 H 91 H Respiratory Rate Blood Pressure Blood Pressure [Right] O2 Sat by Pulse 100 99 99 Oximetry O2 Sat by Pulse Oximetry [ Bilateral] 04/08/21 04/08/21 04/08/21 13:25 13:30 13:35 Temperature Pulse Rate 96 H 88 103 H Respiratory Rate Blood Pressure Blood Pressure [Right] O2 Sat by Pulse 100 100 100 Oximetry O2 Sat by Pulse Oximetry [ Bilateral] 04/08/21 04/08/21 04/08/21 13:40 13:45 13:50 Temperature Pulse Rate 90 90 89 Respiratory Rate Blood Pressure Blood Pressure [Right] O2 Sat by Pulse 100 100 100 Oximetry O2 Sat by Pulse Oximetry [ Bilateral] 04/08/21 13:55 Temperature Pulse Rate 103 H Respiratory Rate Blood Pressure Blood Pressure [Right] O2 Sat by Pulse 100 Oximetry O2 Sat by Pulse Oximetry [ Bilateral] - Respiratory Respiratory effort: normal - Cardiovascular Rhythm: regular Extremities: No edema - Gastrointestinal General gastrointestinal: Present: soft, non-tender - Genitourinary Female genitourinary: other (uterus without tenderness, however pt guarding when touched) - Musculoskeletal Musculoskeletal: other (bilateral CVA tenderness) - Neurologic Neurologic: moves all extremities - Psychiatric Psychiatric: cooperative - Labs CBC & Chem 7: 04/08/21 10:52 04/05/21 23:48 Labs: Abnormal lab results 04/07/21 04/08/21 Range/Units 09:41 10:52 WBC 18.2 H (4.5-11.0) K/mm3 RBC 3.19 L (3.65-5.03) M/mm3 Hct 30.2 L (30.3-42.9) % Lymph % (Auto) 12.0 L (13.4-35.0) % [place] % (Auto) 10.1 H (0.0-7.3) % [place] # (Auto) 1.8 H (0.0-0.8) K/mm3 Seg Neutrophils % 77.4 H (40.0-70.0) % Seg Neuts % (Manual) 91.0 H (40.0-70.0) % Lymphocytes % (Manual) 9.0 L (13.4-35.0) % Seg Neutrophils # 14.1 H (1.8-7.7) K/mm3 Seg Neutrophils # Man 30.3 H (1.8-7.7) K/mm3 Medications & Allergies - Medications Allergies/Adverse Reactions: Allergies broccoli Allergy (Verified 04/07/21 09:07) Anaphylaxis peanut Allergy (Verified 04/07/21 09:07) Anaphylaxis pineapple Allergy (Verified 04/07/21 09:07) Anaphylaxis Home Medications: Home Medications Medication Instructions Recorded Confirmed Last Taken Type One Daily Tablet 1 tab PO DAILY 04/07/21 04/07/21 04/05/21 History Active Medications: Generic Name Dose Route Start Last Admin Trade Name Freq PRN Reason Stop Dose Admin Acetaminophen 650 mg 04/06/21 01:20 04/08/21 03:44 Acetaminophen 325 Mg Tab PO 650 mg Q4H PRN Administration Pain MILD(1-3)/Fever >100.5/STYLES Al Hydrox/Mg Hydrox/Simethicone 30 ml 04/07/21 20:37 04/07/21 23:31 Alum-Mag Hydroxide-Simethicone [id number]/5ml Oral Liqd 30 Ml PO 30 ml Q4H PRN Administration Indigestion Butorphanol Tartrate 2 mg 04/06/21 02:39 04/06/21 07:36 Butorphanol 2 Mg/1 Ml Inj IV 2 mg Q2H PRN Administration Labor Pain Docusate Sodium 100 mg 04/07/21 22:00 04/08/21 10:20 Docusate Sodium 100 Mg Cap PO 100 mg BID LUNA Administration Ampicillin Sodium 2 gm in 100 mls @ 100 mls/hr 04/06/21 02:00 04/08/21 10:18 Ampicillin/Ns 2 Gm/100 Ml IV 100 mls/hr Q6H LUNA Administration Protocol Gentamicin Sulfate 240 mg/ 106 mls @ 200 mls/hr 04/06/21 03:00 04/08/21 03:27 Sodium Chloride IV 200 mls/hr Q24H LUNA Administration Lactated Ringer's 1,000 mls @ 150 mls/hr 04/06/21 01:30 04/08/21 10:20 Lactated Ringers IV 125 mls/hr DIRECT LUNA Administration Morphine Sulfate 4 mg 04/06/21 14:00 04/08/21 11:04 Morphine 4 Mg/1 Ml Inj IV 04/08/21 13:59 4 mg Q6H PRN Administration Pain , Severe (7-10)
--- NOTE | 2021-04-08 17:00 | Event Note ---
Date: 04/08/21 pt evaluated and afebrile, fetus in hte 170's, pelvic exam closed and abd non- tender gravid. Will stop the ampicillin and change daily gent dosing to every 8hr because pt has daily temp spikes in the evening. I spoke with pharmacist and 240mg daily is the highest dose for her. Will repeat temp and give fluid bolus.
[2021-04-08] MEDS: GENTAMICIN/NS 80 MG/100 ML 100 ML IV SCH (21:05)
[2021-04-08] MEDS: ALUM-MAG HYDROXIDE-SIMETHICONE 200-200-20MG/5ML ORAL LIQD 30 ML PO PRN (21:33)
[2021-04-08] MEDS ORDERED: ACETAMINOPHEN W/CODEINE 300-30 MG TAB PO PRN (23:37)
[2021-04-09] MEDS: GENTAMICIN/NS 80 MG/100 ML 100 ML IV SCH (05:38)
[2021-04-09 07:31] LABS: Basophils % (Auto) 0.4 % (0.0-1.8); Eosinophils # (Auto) 0.2 K/mm3 (0.0-0.4); Eosinophils % (Auto) 1.7 % (0.0-4.3); Hematocrit 27.4 % (30.3-42.9); Hemoglobin 9.4 gm/dl (10.1-14.3); Lymphocytes # (Auto) 1.8 K/mm3 (1.2-5.4); Mean Corpuscular HGB Conc 34 % (30-34); Mean Corpuscular Volume 95 fl (79-97); Monocytes # (Auto) 1.1 K/mm3 (0.0-0.8); Monocytes % (Auto) 12.3 % (0.0-7.3); Platelet Count 264 K/mm3 (140-440); Red Blood Count 2.89 M/mm3 (3.65-5.03)
--- NOTE | 2021-04-09 07:46 | Discharge Summary ---
Providers - Providers Date of Admission: 04/06/21 01:21 Date of discharge: 04/09/21 Attending physician: SULEMA SPENCER JR, MD 04/08/21 09:48 Consult to Physician [CONS] Stat Comment: Consulting Provider: [facility] [place] Physician Instructions: Reason For Exam: pyelo, worsening leucocytosis; IUP at 29.5wks Primary care physician: SULMEA SPENCER JR, MD Hospitalization Reason for admission: other (antepartum with pyelonephritis) Discharge diagnosis: other ( contractions not in labor, right pyelo) Hospital course: Pt admitted with right pyelo and given amp/gent for antibiotic coverage. Ucx with Ecoli sensitvie to gentamycin. Consult done to [facility] when febrile morbidity persisted. Pt discharged as recommended by [facility] 24hrs after being afebrile on macrobid script. Pt pain controlled with tylenol #3 prior to discharge and cervix closed. PTL precaution given. Disposition: 30 STILL A PATIENT Plan - Discharge Medications Prescriptions: Nitrofurantoin [place]yer/M-Cryst [Macrobid CAP] 100 mg PO Q12HR #40 capsule - Provider Discharge Summary Additional instructions: [] Smoking cessation referral if applicable(refer to patient education folder for contact #) [] Refer to [facility] Booklet Call your doctor immediately for: * Fever > 100.5 * Heavy vaginal bleeding ( >1 pad per hour) * Severe persistent headache * Shortness of breath * Reddened, hot, painful area to leg or breast * Drainage or odor from incision. * Keep incision clean and dry at all times and follow doctor's instructions r egarding bathing/showering - Follow up plan Follow up: SULEMA SPENCER JR, MD [Primary Care Provider] - 7 Days
[2021-04-09 07:47] VITALS: BP 96/51
== END 2021-04-09 08:20 | disposition home or self-care (01) | DRG 781 ==
LOC: TRG 22:32 → APU 22:33 → TRG 04-06 01:21 → LD 04-06 01:21
PROVIDERS: ADMIT Obstetrics & Gynecology; ATTEND Obstetrics & Gynecology
DX: O23.03 Infections of kidney in pregnancy, third trimester (principal); Z3A.29 29 weeks gestation of pregnancy; Z20.822 Contact with and (suspected) exposure to COVID-19; O99.013 Anemia complicating pregnancy, third trimester; N13.6 Pyonephrosis; O36.8330 Maternal care for abnormalities of the fetal heart rate or rhythm, third trimester, not applicable or unspecified; Z91.010 Allergy to peanuts; Z91.018 Allergy to other foods
CPT/HCPCS: 36415; 59025; 76770; 76805; 76819; 80053; 80170; 81001; 84439; 84443; 85007; 85025; 86850; 86900; 86901; 87076; 87086; 87186; 93005; 96360; 96361; G0378; J0290; J0595; J1100; J1580; J2270; J7120; U0003

== ENCOUNTER 2022-02-11 11:46 | Emergency (ER) | payer MEDICAID ==
[2022-02-11 12:30] VITALS: BP 126/88
== END 2022-02-12 08:06 | disposition left against medical advice (07) ==
LOC: ED 11:46
DX: R07.81 Pleurodynia (principal); N23 Unspecified renal colic; Z53.21 Procedure and treatment not carried out due to patient leaving prior to being seen by health care provider